=== PATIENT | female | born 2000 | race Caucasian/White ===

== ENCOUNTER 2021-03-20 06:28 | Day surgery (SDC) | payer BC, SELFPAY ==
[~2021-03-20] VITALS: Ht 170.2 cm; Wt 108.9 kg
[2021-03-20 06:48] LABS: HCG,QUAL RESULT NEGATIVE (NEGATIVE)
[2021-03-20] MEDS ORDERED: SEVOFLURANE 15 MIN GAS INH ONE (08:42)
[2021-03-20] MEDS ORDERED: GLYCOPYRROLATE 0.2 MG/ML VIAL IJ ONE (08:42)
[2021-03-20] MEDS ORDERED: LR 1,000 ML IV.SOLN IV ONE (08:42)
[2021-03-20] MEDS ORDERED: SUCCINYLCHOLINE CHLORIDE 20 MG/ML(QUELICIN) IVP ONE (08:42)
[2021-03-20] MEDS ORDERED: BACITRACIN ZINC 15 GM TOPICAL OINTMENT TP ONE (08:42)
[2021-03-20] MEDS ORDERED: NS 1000 ML IV.SOLN IV ONE (08:42)
[2021-03-20] MEDS ORDERED: DEXAMETHASONE SOD PHOSPHATE 4 MG/ML VIAL IVP ONE (08:42)
[2021-03-20] MEDS ORDERED: fentaNYL CITRATE/PF 100 MCG/2 ML AMP IVP ONE (08:42)
[2021-03-20] MEDS ORDERED: BUPIVACAINE /EPINEPHRINE/PF 0.25% 30 ML VIAL INJ ONE (08:42)
[2021-03-20] MEDS ORDERED: NEOSTIGMINE METHYLSULFATE 1 MG/ML, 10 ML VIAL IVP ONE (08:42)
[2021-03-20] MEDS ORDERED: MIDAZOLAM HCL 5 MG/5 ML VIAL IVP ONE (08:42)
[2021-03-20] MEDS ORDERED: NS IRRIG SOLN 1000 ML IR ONE (08:42)
[2021-03-20] MEDS ORDERED: PROPOFOL 200MG/ 20ML VIAL (DIPRIVAN) IV ONE (08:42)
[2021-03-20] MEDS ORDERED: LR 1,000 ML IV SCH (08:45)
[2021-03-20] MEDS ORDERED: HYDROmorphone 1 MG/ML INJ. CARTRIDGE IVP PRN (08:45)
[2021-03-20] MEDS ORDERED: MEPERIDINE HCL/PF 25 MG/ML DISP.SYRIN IVP PRN (08:45)
[2021-03-20] MEDS ORDERED: HYDROmorphone 2 MG/ML VIAL IVP PRN ×2 (08:45)
[2021-03-20] MEDS ORDERED: ACETAMINOPHEN I.V. 1000 MG 100 ML IV ONE (09:27)
[2021-03-20 12:55] VITALS: BP_SYST 113
== END 2021-03-20 11:35 | disposition home or self-care (01) ==
LOC: SDS 06:28 → SMU 06:29 → SDS 11:35
PROVIDERS: ATTEND Otolaryngology
DX: J35.01 Chronic tonsillitis (principal); E66.01 Morbid (severe) obesity due to excess calories; Z88.0 Allergy status to penicillin; Z79.899 Other long term (current) drug therapy
CPT/HCPCS: 36415; 42826; 84703; 87426; 88304; J0131; J0330; J1100; J2250; J2704; J2710; J3010; J3490 ×2; J7030; J7120